=== PATIENT | male | born 1980 | race Caucasian/White ===

== ENCOUNTER 2019-11-30 07:45 | Emergency (ER) | payer BC, SELFPAY ==
[2019-11-30 07:50] VITALS: BP 131/74; PULSE 58; RESP 14; TEMP 36.5; O2SAT 99
--- NOTE | 2019-11-30 07:56 | W.ED.GENAD ---
Discharge Plan Disposition Patient Disposition: HOME Condition: Stable Discharge Details Chief Complaint: FlankPain Clinical Impression: Ureterolithiasis Primary Care Provider: None,None ED Provider: Jess Galvez Home Meds and New Rx's Prescriptions: No Action No Known Home Meds RF: 0 Discharge Instructions Instructions: Kidney Stones (ED) Additional Instructions: Please return immediately to the emergency department if you develop any new or worsening symptoms, if your condition does not improve as expected, or if you become otherwise concerned. It is extremely important that you call soon as possible to make an appointment to be seen in follow-up for this visit by your primary care doctor and a urologist as we discussed. Referrals: Chet Pedraza MD [ [facility] STAFF PHYSICIAN] - Discharge Data Discharge Date/Time-TO BE ENTERED AT DEPARTURE: 11/30/19 10:08 Medical Decision Making Larry Rodriguez 39-year-old man with history of kidney stones who presents emergency department with right-sided flank pain consistent with his prior episodes of kidney stones. On exam patient is well and nontoxic-appearing, he has mild right-sided CVA tenderness, benign abdominal exam. He appears comfortable and in no distress. Testicular/scrotal exam is benign. Concern for ureterolithiasis, UTI, other. Exam/history at this time is not consistent with acute aortic pathology, testicular torsion, orchitis, epididymitis, other acute emergent testicular pathology. Plan for screening labs, IV fluid hydration, CT renal. Will hold pain medication at this time as patient reports that he is currently comfortable. Prior to CT result, patient reports that he felt stone passage during urination. CT shows mild right-sided hydronephrosis and 2 mm stone in bladder, CT also shows bilateral fat-containing inguinal hernias, which may be contributing to patient's intermittent testicular discomfort. Plan for outpatient follow-up with urology. Patient feels well, requesting discharge home. I had a lengthy discussion with Patient regarding return to emergency department precautions, home care, and importance of outpatient follow-up. Pt verbalizes understanding of the plan and is amenable. Patient discharged to home with clear plan for outpatient follow-up. All questions were answered. Disposition decision was made weighing the risks and benefits of hospitalization versus outpatient treatment, the risk for further decompensation, and the patient's wishes. Medical Records Medical records reviewed: Yes I reviewed the patient's medical records. Imaging Data Radiologic Study: Attestation: I personally reviewed and interpreted this imaging study as follows: Radiologist's impression: EXAM: CT RENAL COLIC WO CLINICAL HISTORY: right flank pain. TECHNIQUE: Imaging Protocol: Axial computed tomography images with coronal and sagittal reformatted images were created and reviewed. CONTRAST MATERIAL: Intravenous: Omnipaque 350 Contrast volume:structured data in ml Contrast route:IV - Oral: yes / no COMPARISON: No exams were available for comparison FINDINGS: ABDOMEN: Lung Bases: Normal where visualized. Liver: Normal density. No measurable mass. Gallbladder and biliary tract: No radiodense calculus or dilation. Pancreas: Normal density, no abnormal calcifications or inflammatory process. Spleen: Normal. Kidneys: Normal size, contour and axis. There are 2 adjacent stones at the lower pole of the left kidney which are nonobstructing. They measure approximately 12 millimeters in greatest dimension. There is mild right hydronephrosis. There is a 2 millimeter stone seen in the urinary bladder. No stones are noted in the right kidney or right ureter.. No masses seen. Adrenal glands: No masses seen. Abdominal Aorta: Abdominal portion non-dilated. PELVIS: Bladder: Symmetric distention, no gross wall thickening. 2 millimeter stone in the bladder. Bowel: No obstruction or bowel wall thickening. Normal appendix. Peritoneal cavity: No ascites, collection or mesenteric inflammatory response. Bones: Within normal limits. Small bilateral fatty containing inguinal hernias. IMPRESSION: Mild right hydronephrosis. 2 millimeter stone is noted in the urinary bladder. Lab Data Lab results reviewed: Yes I reviewed the patient's lab results. Labs: Laboratory Tests Range/Units 11/30/19 11/30/19 11/30/19 08:00 08:00 08:50 WBC (4.4-10.8) 10^3/uL 8.26 RBC (4.36-5.78) 10^6/uL 5.21 Hgb (13.5-17.5) g/dL 15.4 Hct (40.0-50.0) % 46.1 MCV (80-95) fL 88.5 MCH (27.0-33.0) pg 29.6 MCHC (32.0-36.0) % 33.4 RDW (11.8-14.1) % 11.9 Plt Count (130-400) 10^3/uL 179 MPV (8.0-11.0) fL 10.4 Immature Gran % 0.4 Neutrophils % 77.3 Lymphocytes % 14.9 Monocytes % 6.5 Eosinophils % 0.7 Basophils % 0.2 Absolute Neutrophils (1.2-6.7) 10^3/uL 6.38 Absolute Lymphocytes (1.2-3.4) 10^3/uL 1.23 Absolute Monocytes (0.1-0.8) 10^3/uL 0.54 Absolute Eosinophils (0.0-0.7) 10^3/uL 0.06 Absolute Basophils (0.0-0.2) 10^3/uL 0.02 Sodium (136-145) mmol/L 140 Potassium (3.5-5.1) mmol/L 3.6 Chloride (98-107) mmol/L 103 Carbon Dioxide (21.0-32.0) mmol/L 28.4 Anion Gap (3-11) mmol/L 8.6 BUN (7-18) mg/dL 17 Creatinine (0.70-1.30) mg/dL 1.08 Estimated GFR/1.73 m2 (mL/min/1.73m2) >= 60.00 Glucose (74-106) mg/dL 113 H Calcium (8.5-10.1) mg/dL 9.1 Total Bilirubin (0.2-1.0) mg/dL 0.4 AST (15-37) U/L 18 ALT (16-63) U/L 27 Alkaline Phosphatase (46-116) U/L 57 Total Protein (6.4-8.2) g/dL 7.7 Albumin (3.4-5.0) g/dL 4.3 Urine Color (Yellow) Yellow Urine Clarity (Clear) Clear Urine pH (5-8) 5.5 Ur Specific [place] (1.005-1.025) 1.010 Urine Protein (Negative) mg/dL Negative Urine Ketones (Negative) mg/dL Negative Urine Blood (Negative) Large H Urine Nitrite (Negative) Negative Urine Bilirubin (Negative) Negative Urine Urobilinogen (Up TO 0.2) EU/dL 0.2 Ur Leukocyte Esterase (Negative) Negative Urine RBC (0-2) HPF 20-50 H Urine WBC (0-5) HPF 0-2 Ur Epithelial Cells (Negative) HPF Negative Urine Crystals (Negative) HPF Negative Urine Bacteria (Negative) HPF Negative Urine Casts (Negative) LPF Negative Urine Mucus (Negative) Trace Ur Culture Indicated? No Urine Glucose (Negative) mg/dL Negative HPI General Mode of arrival: ambulatory. Date/Time Provider Initiated Documentation: 11/30/19 07:55. Limitations to Documentation: no limitations. Information obtained by: patient, RN notes reviewed and old records reviewed. HPI Narrative: Larry Rodriguez 49-year-old man with a history of kidney stones presenting to the emergency department with right-sided flank pain. Patient reports that he has had 3 kidney stones in the past, on the left side. Patient states last episode was approximately 1.5 years ago. Patient reports that at 5 AM this morning he awoke from sleep with right-sided flank pain that was initially mild and then became more severe with radiation into his right lower abdomen and right testicle. Patient reports that his pain was consistent with his prior episodes of kidney stones, although now on the right as opposed to the prior episodes which were on the left. Patient reports that he has been told in the past by his urologist that when he feels the stone pain he should drink large quantities of water. Patient reports that he attempted to do so this morning. But had 2 episodes of vomiting, he reports emesis was water only. Patient reports that while in his car on the way to the emergency department his pain subsided substantially and is currently now mild. Patient reports that he was previously in his usual state of health. No fevers, no diarrhea, no numbness, no weakness, no rash. When questioned about other pain, patient states that he has had mild intermittent pain in his left testicle for the past 3 weeks or so, not currently occurring. Patient reports that pain has been mild and not something he would have sought emergency care for. He denies any new sexual partners and states that he has not had any sexual activity in the past 2 months or so, denies dysuria, denies penile discharge. Has been eating and drinking as usual prior to this morning. Patient reports he has been unable to urinate since waking with pain this morning. Related Data Home Medications Medication Instructions Recorded Confirmed Unknown [No Known Home Meds] 11/30/19 11/30/19 Allergies Allergy/AdvReac Type Severity Reaction Status Date / Time No Known Allergies Allergy Unverified 11/30/19 07:53 General Stated Complaint: FlankPain KELLEN: 3 Review of Systems Narrative: Constitutional: denies fevers Eyes: denies eye pain ENT: denies ear pain, dental pain, sore throat Cardiovascular: denies chest pain Respiratory: denies SOB, cough GI: Reports pain radiating into abdomen, vomiting, denies diarrhea : Reports flank pain, 3 weeks of intermittent testicular pain, denies dysuria, scrotal swelling/rash, penile discharge MSK: denies back pain, neck pain, arthralgias, myalgias Skin: denies rash Neuro: denies headaches, numbness, weakness [facility] Social History Smoking/Tobacco Use Status: Former Tobacco Use Alcohol Intake: current Alcohol Intake frequency: a few times a week Alcohol type: beer Substance use type: does not use Do you feel safe at home: Yes Do you feel safe in your relationship?: Yes Exam Narrative Exam Narrative: Constitutional: well and [id number], pleasant, conversing normally HENT: head atraumatic/normocephalic/normal inspection, mucous membranes moist Eyes: conjunctiva normal, sclera normal, pupils 3mm b/l Neck: no stridor, normal ROM, trachea midline Chest: normal inspection Resp: normal work of breathing, no respiratory distress Cardio: normal rate, normal rhythm GI: abdomen soft, non-tender, non-distended : Normal penis, bilateral testicles nontender to palpation, no scrotal edema or scrotal skin changes Back: normal inspection, no rash, mild right-sided CVA tenderness, no left CVA tenderness Skin: warm, dry, normal color, no rash Neuro: alert, not altered, grossly non-focal, normal tone Ext: no edema Psych: normal mood, normal affect, normal behavior Course Vital Signs Vital signs: Vital Signs Temperature 36.5 C 11/30/19 07:50 Pulse 58 L 11/30/19 07:50 Respiratory Rate 14 11/30/19 07:50 Blood Pressure 131/74 11/30/19 07:50 Pulse Oximetry 99 11/30/19 07:50 Temperature 36.5 C 11/30/19 07:50 Temperature Source Tympanic 11/30/19 07:50 Pulse 58 L 11/30/19 07:50 Respiratory Rate 14 11/30/19 07:50 Respiratory Effort Non-Labored 11/30/19 07:52 Blood Pressure 131/74 11/30/19 07:50 Blood Pressure Position Sitting 11/30/19 07:50 Pulse Oximetry 99 11/30/19 07:50 Oxygen Delivery Method Room Air 11/30/19 07:50 Oxygen Flow Rate 0 11/30/19 07:50 Pain Level 2 11/30/19 07:50 Comment 11/30/19 07:50
[2019-11-30 08:16] LABS: Abs Immature Grans 0.03 10^3/uL (0.0-0.06); Absolute Basophil Count 0.02 10^3/uL (0.0-0.2); Absolute Eosinophil Count 0.06 10^3/uL (0.0-0.7); Absolute Lymphocyte Count 1.23 10^3/uL (1.2-3.4); Absolute Monocyte Count 0.54 10^3/uL (0.1-0.8); Absolute Neutrophil Count 6.38 10^3/uL (1.2-6.7); Basophils % 0.2; Eosinophils % 0.7; HCT 46.1 % (40.0-50.0); HGB 15.4 g/dL (13.5-17.5); Immature Grans % 0.4; Lymphocytes % 14.9; MCH 29.6 pg (27.0-33.0); MCHC 33.4 % (32.0-36.0); MCV 88.5 fL (80-95); MPV 10.4 fL (8.0-11.0); Monocytes % 6.5; Neutrophils % 77.3; Nucleated RBC 0 %; Platelet Count 179 10^3/uL (130-400); RBC 5.21 10^6/uL (4.36-5.78); RDW 11.9 % (11.8-14.1); RDW-SD 38.3 fL; WBC 8.26 10^3/uL (4.4-10.8)
[2019-11-30 08:31] LABS: ALT 27 U/L (16-63); AST 18 U/L (15-37); Albumin 4.3 g/dL (3.4-5.0); Alkaline Phosphatase 57 U/L (46-116); Anion Gap 8.6 mmol/L (3-11); BUN 17 mg/dL (7-18); Bilirubin, Total 0.4 mg/dL (0.2-1.0); CO2 28.4 mmol/L (21.0-32.0); CREATININE 1.08 mg/dL (0.70-1.30); Calcium 9.1 mg/dL (8.5-10.1); Chloride 103 mmol/L (98-107); Glucose 113 mg/dL (74-106); Potassium 3.6 mmol/L (3.5-5.1); Sodium 140 mmol/L (136-145); Total Protein 7.7 g/dL (6.4-8.2)
--- NOTE | 2019-11-30 08:33 | DI.CT_ITS ---
EXAM: CT RENAL COLIC WO CLINICAL HISTORY: right flank pain. TECHNIQUE: Imaging Protocol: Axial computed tomography images with coronal and sagittal reformatted images were created and reviewed. CONTRAST MATERIAL: Intravenous: Omnipaque 350 Contrast volume:structured data in ml Contrast route:I V - Oral: yes / no COMPARISON: No exams were available for comparison FINDINGS: ABDOMEN: Lung Bases: Normal where visualized. Liver: Normal density. No measurable mass. Gallbladder and biliary tract: No radiodense calculus or dilation. Pancreas: Normal density, no abnormal calcifications or inflammatory process. Spleen: Normal. Kidneys: Normal size, contour and axis. There are 2 adjacent stones at the lower pole of the left kid demetris which are nonobstructing. They measure approximately 12 millimeters in greatest dimension. Ther e is mild right hydronephrosis. There is a 2 millimeter stone seen in the urinary bladder. No stone s are noted in the right kidney or right ureter.. No masses seen. Adrenal glands: No masses seen. Abdominal Aorta: Abdominal portion non-dilated. PELVIS: Bladder: Symmetric distention, no gross wall thickening. 2 millimeter stone in the bladder. Bowel: No obstruction or bowel wall thickening. Normal appendix. Peritoneal cavity: No ascites, collection or mesenteric inflammatory response. Bones: Within normal limits. Small bilateral fatty containing inguinal hernias. IMPRESSION: Mild right hydronephrosis. 2 millimeter stone is noted in the urinary bladder. RADIATION DOSE DELIVERED: 711.56mGy.cm Total DLP DATA REPOSITORY: All CT scans at this facility are submitted to the National Radiology Data Registry (NRDR) Dose Index Registry (DIR) with the [employer] [place] [employer] (ACR). RADIATION OPTIMIZATION: All CT scans at this facility use at least one of these dose optimization te chniques: automated exposure control; mA and/or kV adjustment per patient size (includes targeted exa ms where dose is matched to clinical indication); or iterative reconstruction.
--- NOTE | 2019-11-30 08:56 | NUR.NOTE ---
Nursing Note: PT reports passing kidney stone while providing a urine sample. Stone could be seen in toilet. MD Galvez made aware.
[2019-11-30 09:10] LABS: Bilirubin Negative (Negative); Blood Large (Negative); Clarity Clear (Clear); Glucose Negative (Negative); Ketones Negative (Negative); Leukocyte Esterase Negative (Negative); Nitrite Negative (Negative); Urobilinogen 0.2 EU/dL (Up TO 0.2); pH 5.5 (5-8)
[2019-11-30 09:32] LABS: Bacteria Negative HPF (Negative); C & S Indicated? No; Casts Negative LPF (Negative); Crystals Negative HPF (Negative); Epithelial Cells Negative HPF (Negative); Mucus Trace (Negative); RBC 20-50 HPF (0-2); WBC 0-2 HPF (0-5)
[2019-11-30 09:40] VITALS: BP 111/68; PULSE 68; RESP 16; TEMP 36.5; O2SAT 99
--- NOTE | 2019-11-30 10:15 | NUR.NOTE ---
Nursing Note: Referral faxed to [facility] Urology for follow up. Sugey Sylvester Referral to establish care for PCP given to Care Management. Sugey Sylvester
--- NOTE | 2019-11-30 15:33 | PDOC.ERCMPRO ---
- If Service Date Differs Date of service: 11/30/19 Time of Service: 15:33 Care Management Progress Note coordinates a referral to Dr. Randall, on-call doc, of [facility], to assist Larry in establishing care with PCP. A referral has also been faxed to [facility] Urology by the ED.
== END 2019-11-30 10:08 | disposition home or self-care (01) ==
PROVIDERS: Emergency Provider Student in an Organized Health Care Education/Training Program
DX: N13.2 Hydronephrosis with renal and ureteral calculous obstruction (principal); R11.2 Nausea with vomiting, unspecified; Z87.442 Personal history of urinary calculi
CPT/HCPCS: 36415; 80053; 99284; 74176; 81003; 81015; 85025

== ENCOUNTER 2020-09-08 02:34 | Outpatient (CLI) | payer BC, SELFPAY ==
[2020-09-08 13:59] LABS: BUN 12 mg/dL (7-18); CREATININE 0.9 mg/dL (0.70-1.30)
== END 2020-09-08 02:35 | disposition home or self-care (01) ==
LOC: LBO 02:34
PROVIDERS: Visit Provider Nurse Practitioner Gerontology
DX: R10.31 Right lower quadrant pain (principal); N50.82 Scrotal pain
CPT/HCPCS: 84520; 82565

== ENCOUNTER 2020-12-19 04:44 | Inpatient (IN) | payer BC, SELFPAY ==
[2020-12-19] VITALS (7 sets, daily range): BP systolic 120–131; BP diastolic 73–86; PULSE 66–81; RESP 14–20; TEMP 36.2–36.7; O2SAT 97–100
--- NOTE | 2020-12-19 04:45 | DI.CT_ITS ---
Exam(s) CT RENAL COLIC WO EXAM: CT RENAL COLIC WO CLINICAL HISTORY: left flank pain. TECHNIQUE: Imaging Protocol: Axial computed tomography images with coronal and sagittal reformatted images were created and reviewed. CONTRAST MATERIAL: Noncontrast COMPARISON: CT CT RENAL COLIC WO from 11/30/2019 FINDINGS: ABDOMEN: Lung Bases: Normal where visualized. Liver: Normal attenuation. No measurable mass. Gallbladder and biliary tract: No radiodense calculus or dilation. Pancreas: Normal density, no calcifications or inflammatory process. Spleen: Normal. Kidneys: Normal size, contour and axis. 7 millimeter stone lower pole left kidney. Mild to moderate left hydronephrosis secondary to a 6 by 8 millimeter stone upper left ureter. No masses seen. Rig ht kidney normal. Adrenal glands: No masses seen. Abdominal Aorta: Abdominal portion non-dilated. PELVIS: Bladder: Symmetric distention, no gross wall thickening. Bowel: No obstruction or bowel wall thickening. Appendix normal. Peritoneal cavity: No ascites, collection or mesenteric inflammatory response. Small fatty containin g umbilical hernia. Bones: Mild degenerative changes.. IMPRESSION: Mild to moderate left hydronephrosis secondary to an 8 millimeter stone in the proximal left ureter. Additional 7 millimeter stone lower pole left kidney. RADIATION DOSE DELIVERED: 894.1mGy.cm Total DLP DATA REPOSITORY: All CT scans at this facility are submitted to the National Radiology Data Registry (NRDR) Dose Index Registry (DIR) with the [employer] (ACR). RADIATION OPTIMIZATION: All CT scans at this facility use at least one of these dose optimization te chniques: automated exposure control; mA and/or kV adjustment per patient size (includes targeted exa ms where dose is matched to clinical indication); or iterative reconstruction.
--- NOTE | 2020-12-19 04:51 | W.ED.GENAD ---
Discharge Plan Disposition Patient Disposition: [facility] INPATIENT Condition: Stable Discharge Details Chief Complaint: FlankPain Clinical Impression: Kidney stones Primary Care Provider: Unknown,Unknown ED Provider: Sidney Ochoa Home Meds and New Rx's Prescriptions: No Action No Known Home Meds RF: 0 Medical Decision Making Patient is a this is a 40-year-old male with a past medical history of kidney stones who presents today with sudden onset left flank pain. Patient states that he woke up out of sleep with severe left flank pain, it radiates towards his groin, he denies any actual scrotal or penile pain, however he does feel radiation from his left flank. He admits to nausea but no vomiting. He denies diarrhea. Patient states that this feels similar to previous kidney stones. No other complaints at this time. No other modifying factors. He has not had his stone analyzed in the past. Exam demonstrates a nonsurgical abdomen. He does have referred left flank pain. Suspect kidney stone. Will give Tylenol, Toradol, Flomax, morphine, CT renal study, monitor closely and reassess. 7:[address] scan results have returned per virtual radiology and demonstrate evidence of a 6 mm obstructing stone in the proximal left ureter causing moderate left hydronephrosis. Laboratory work-up is unremarkable, no white count bandemia or left shift. Electrolytes normal, renal function normal. Urinalysis shows large blood, high RBC, but no WBCs. No evidence of UTI or infection. Patient was given a liter of normal saline, and has so far required multiple redosings of morphine, Dilaudid, and Toradol. With the size of the stone, I do not suspect that the patient will be managed well outpatient. I do feel that he will need admission at this time for pain management. The stone still does not pass over the next 24 hours the patient may require lithotripsy or stone removal via surgical intervention. We will contact the hospitalist for admission. 7:39 AM Contacted the hospitalist , he agrees with the assessment and plan. I have extensively reviewed the treatment plan with the patient. I have addressed all patient concerns at this time. I have also discussed the plan with the admitting physician and they agree with the current assessment and plan and have agreed to assume responsibility for the patient. All parties demonstrate verbal understanding and agreement with our assessment and plan at this time. The documentation in this chart was dictated using Dragon dictation software. Please excuse any dictation errors. IMPRESSION: 1. 6 mm obstructing stone proximal left ureter causing moderate left hydronephrosis. 2. Bilateral nephrolithiasis Thank you for allowing us to participate in the care of your patient. Dictated and Authenticated by: Eulalia Gomez MD 12/19/2020 5:38 AM Eastern Time ([place] & [place]) HPI General Date/Time Provider Initiated Documentation: 12/19/20 04:44. HPI Narrative: Patient is a this is a 40-year-old male with a past medical history of kidney stones who presents today with sudden onset left flank pain. Patient states that he woke up out of sleep with severe left flank pain, it radiates towards his groin, he denies any actual scrotal or penile pain, however he does feel radiation from his left flank. He admits to nausea but no vomiting. He denies diarrhea. Patient states that this feels similar to previous kidney stones. No other complaints at this time. No other modifying factors. He has not had his stone analyzed in the past. Related Data Home Medications Medication Instructions Recorded Confirmed Unknown [No Known Home Meds] 11/30/19 12/19/20 Allergies Allergy/AdvReac Type Severity Reaction Status Date / Time No Known Allergies Allergy Unverified 12/19/20 04:50 General Stated Complaint: FlankPain KELLEN: 2 Review of Systems All systems reviewed & are unremarkable except as noted in HPI and below [facility] Social History Smoking/Tobacco Use Status: Former Tobacco Use Smoking risk assessment performed?: Yes Alcohol Intake: current Alcohol Intake frequency: a few times a week Alcohol type: beer Drug use: Never Substance use type: does not use Current gender identity: other Do you feel safe at home: Yes Do you feel safe in your relationship?: Yes Exam Narrative Exam Narrative: 1.Const: Well-nourished, Well-developed, appearing stated age 2.Eyes: PERRL, no conjunctival injection, and symmetrical lids. 3.ENT: Atraumatic external nose and ears. Moist MM. Neck: Symmetric, trachea midline, No thyromegaly. 4.CVS: +S1/S2, No murmurs or gallops. Peripheral pulses 2+ and equal in all extremities. Brisk capillary refill in all extremities. 5.RESP: Unlabored respiratory effort. Clear to auscultation bilaterally. No wheezes rales or rhonchi 6.GI: Soft, Nontender/Nondistended, No hepatosplenomegaly. No guarding or rebound. No genital tenderness. Mild reproducible left flank tenderness on percussion no pain or McBurney's point, negative Grider sign 7.MSK: Normocephalic/Atraumatic, Extremities w/o deformity or ttp No cyanosis or clubbing, Normal movement of all extremities 8.Skin: Warm, Dry. No rashes or lesions. 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 Sensation grossly intact, no focal neurologic deficits. 10.Psych: (AAO) x3. Appropriate mood and affect Course Vital Signs Vital signs: Vital Signs Temperature 36.2 C L 12/19/20 04:47 Temperature 36.2 C L 12/19/20 04:47 Temperature Source Skin 12/19/20 04:47 Blood Pressure Position Sitting 12/19/20 04:47 Oxygen Delivery Method Room Air 12/19/20 04:47 Oxygen Flow Rate 0 12/19/20 04:47 Pain Level 7 12/19/20 04:47
[2020-12-19] MEDS: Normal Saline 1,000 ML 1000 ML IV (04:59)
[2020-12-19] MEDS: Tamsulosin 0.4 MG CAPCR PO (05:01)
[2020-12-19] MEDS: Ketorolac 15 MG/ML VIAL IVP (05:01)
[2020-12-19 05:02] LABS: Abs Immature Grans 0.01 10^3/uL (0.0-0.06); Absolute Basophil Count 0.05 10^3/uL (0.0-0.2); Absolute Eosinophil Count 0.22 10^3/uL (0.0-0.7); Absolute Lymphocyte Count 4.33 10^3/uL (1.2-3.4); Absolute Monocyte Count 0.74 10^3/uL (0.1-0.8); Absolute Neutrophil Count 2.84 10^3/uL (1.2-6.7); Basophils % 0.6; Eosinophils % 2.7; HCT 45.7 % (40.0-50.0); HGB 15.1 g/dL (13.5-17.5); Immature Grans % 0.1; Lymphocytes % 52.9; MCH 29.3 pg (27.0-33.0); MCV 88.7 fL (80-95); MPV 10.1 fL (8.0-11.0); Neutrophils % 34.7; Nucleated RBC 0 %; Platelet Count 221 10^3/uL (130-400); RBC 5.15 10^6/uL (4.36-5.78); RDW 11.9 % (11.8-14.1); RDW-SD 39.2 fL; WBC 8.19 10^3/uL (4.4-10.8)
[2020-12-19] MEDS: MORPHine 4 MG/ML SYR IVP (05:03)
[2020-12-19 05:16] LABS: ALT 28 U/L (16-63); AST 16 U/L (15-37); Albumin 4.3 g/dL (3.4-5.0); Alkaline Phosphatase 74 U/L (46-116); Anion Gap 10.6 mmol/L (3-11); BUN 17 mg/dL (7-18); Bilirubin, Total 0.4 mg/dL (0.2-1.0); CO2 26.4 mmol/L (21.0-32.0); CREATININE 1.3 mg/dL (0.70-1.30); Calcium 9.1 mg/dL (8.5-10.1); Chloride 105 mmol/L (98-107); Glucose 142 mg/dL (74-106); Potassium 3.8 mmol/L (3.5-5.1); Sodium 142 mmol/L (136-145); Total Protein 7.7 g/dL (6.4-8.2)
[2020-12-19] MEDS: ACETAMINOPHEN 1,000 MG/100 ML BTL 400 MG IVPB (05:19)
--- NOTE | 2020-12-19 05:39 | DI.VRAD_ITS ---
PROCEDURE INFORMATION: Exam: CT Abdomen And Pelvis Without Contrast Exam date and time: 12/19/2020 4:51 AM Age: 40 years old Clinical indication: Abdominal pain; Patient HX: Left flank pain, HX of stones with prior lithotripsy TECHNIQUE: Imaging protocol: Computed tomography of the abdomen and pelvis without contrast. Radiation optimization: All CT scans at this facility use at least one of these dose optimization techniques: automated exposure control; mA and/or kV adjustment per patient size (includes targeted exams where dose is matched to clinical indication); or iterative reconstruction. COMPARISON: CT RENAL COLIC WO 11/30/2019 8:32 AM FINDINGS: Lungs: Unremarkable. Lung bases are clear. Liver: Unremarkable. No mass. Gallbladder and bile ducts: Unremarkable. No calcified stones. No ductal dilation. Pancreas: Unremarkable. No ductal dilation. Spleen: Unremarkable. No splenomegaly. Adrenal glands: Normal. No mass. Kidneys and ureters: 6 mm obstructing stone is present in the left proximal ureter causing moderate left-sided hydronephrosis. Bilateral nephrolithiasis. Stomach and bowel: Mild scattered diverticuli are present within the sigmoid colon. No evidence of diverticulitis. Appendix: No evidence of appendicitis. Intraperitoneal space: Unremarkable. No free air. No significant fluid collection. Vasculature: Unremarkable. No abdominal aortic aneurysm. Lymph nodes: Unremarkable. No enlarged lymph nodes. Urinary bladder: Unremarkable as visualized. Reproductive: Unremarkable as visualized. Bones/joints: Unremarkable. No acute fracture. Soft tissues: Unremarkable. IMPRESSION: 1. 6 mm obstructing stone proximal left ureter causing moderate left hydronephrosis. 2. Bilateral nephrolithiasis Dictated and Authenticated by: Eulalia Gomez MD. Ordering:BOO Little MD
[2020-12-19] MEDS: HYDROmorphone 2 MG/ML VIAL 1 MG IVP ×2 (05:45→06:44)
[2020-12-19 06:51] LABS: Bilirubin Negative (Negative); Blood Large (Negative); Clarity Clear (Clear); Glucose Negative (Negative); Ketones Negative (Negative); Leukocyte Esterase Negative (Negative); Nitrite Negative (Negative); Urobilinogen 0.2 EU/dL (Up TO 0.2); pH 5.5 (5-8)
[2020-12-19 07:01] LABS: Bacteria Moderate HPF (Negative); Crystals Negative HPF (Negative); Epithelial Cells Rare HPF (Negative); Mucus Moderate (Negative); RBC >50 HPF (0-2); WBC 0-2 HPF (0-5)
[2020-12-19 07:02] LABS: C & S Indicated? Yes; Casts 0-2 Hyaline LPF (Negative)
--- NOTE | 2020-12-19 08:20 | W.PM.HP.N ---
Date of service: 12/19/20 Time of Service: 08:21 Assessment and Plan Assessment and plan (1) Kidney stones: Status: Chronic Assessment and plan: CT scan shows obstructing 6 mm stone proximal left ureter causing moderate left hydronephrosis with bilateral nephrolithiasis. will be referred to observation for symptom management -started on flomax -IV pain management, titrate as able -IV fluids and antiemetics as needed -urology consultation -strain all urine. discussed with Dr Kincaid History of Present Illness History of Present Illness Chief Complaint: left flank pain Narrative: patient presents to the ED after being awoken from sleep with severe left flank pain radiating into his groin. he has a history of kidney stones and this presents similar. He reported nausea, no vomiting. and was previously in his usual state of health. His work up in the ED confirms an obstructing 6 mm stone on the left. He will be admitted for pain management and if does not pass, will be referred to urology. He received several doses of IV pain medication in the ED to control his pain. Review of Systems All systems reviewed & are unremarkable except as noted in HPI and below Constitutional Constitutional: Denies fever(s) Gastrointestinal Gastrointestinal: Denies abdominal pain, Reports nausea and Denies vomiting Genitourinary Genitourinary: Denies hematuria, Denies difficulty urinating, Reports flank pain and Denies urinary urgency Musculoskeletal Musculoskeletal: Reports back pain (left flank with radiation to groin) Hematologic/Lymphatic Hematologic/Lymphatic: Denies easy bleeding and Denies easy bruising PFSH Social History Smoking/Tobacco Use Status: Former Tobacco Use Smoking risk assessment performed?: Yes Alcohol Intake: current Alcohol Intake frequency: a few times a week Alcohol type: beer Drug use: Never Substance use type: does not use Current gender identity: other Do you feel safe at home: Yes Do you feel safe in your relationship?: Yes Meds Allergies and Home Medications Allergies Allergy/AdvReac Type Severity Reaction Status Date / Time No Known Allergies Allergy Unverified 12/19/20 04:50 Home Medications Medication Instructions Recorded Confirmed Type acetaminophen 650 mg PO Q4H PRN #1 tab 12/19/20 Rx ibuprofen 800 mg PO TID PRN #30 tab 12/19/20 Rx ondansetron 4 mg PO Q4H PRN #12 tab 12/19/20 Rx oxycodone 5 mg PO Q6H PRN #10 cap 12/19/20 Rx tamsulosin 0.4 mg PO DAILY #7 cap 12/19/20 Rx Exam Const General: cooperative, healthy appearing, comfortable, no acute distress and well groomed Nutritional Appearance: average body habitus Orientation: alert, awake and oriented x3 HENMT Head: normal to inspection, normocephalic and atraumatic Resp Effort & Inspection: normal respiratory effort Cardio Jugular venous pressure: other (pink warm well perfused) GI Inspection: normal to inspection Palpation: soft Skin General skin exam: no rashes or lesions noted Neuro General: patient alert, patient awake and patient oriented x3 Extrem General: normal to inspection and full ROM Psych Mental Status: mental status grossly normal Speech and Movement: speech and movement normal Mood: congruent mood Affect: normal affect Results Labs Result diagrams: 12/19/20 04:53 12/19/20 04:53 Labs: Laboratory Results - last 24 hr 12/19/20 12/19/20 12/19/20 04:53 04:53 06:43 WBC 8.19 RBC 5.15 Hgb 15.1 Hct 45.7 MCV 88.7 MCH 29.3 MCHC 33.0 RDW 11.9 Plt Count 221 MPV 10.1 Immature Gran % 0.1 Neutrophils % 34.7 Lymphocytes % 52.9 Monocytes % 9.0 Eosinophils % 2.7 Basophils % 0.6 Nucleated RBC % 0 Absolute Neutrophils 2.84 Absolute Lymphocytes 4.33 H Absolute Monocytes 0.74 Absolute Eosinophils 0.22 Absolute Basophils 0.05 Sodium 142 Potassium 3.8 Chloride 105 Carbon Dioxide 26.4 Anion Gap 10.6 BUN 17 Creatinine 1.3 Estimated GFR/1.73 m2 >= 60.00 Glucose 142 H Calcium 9.1 Total Bilirubin 0.4 AST 16 ALT 28 Alkaline Phosphatase 74 Total Protein 7.7 Albumin 4.3 Urine Color Yellow Urine Clarity Clear Urine pH 5.5 Ur Specific [place] 1.020 Urine Protein Negative Urine Ketones Negative Urine Blood Large H Urine Nitrite Negative Urine Bilirubin Negative Urine Urobilinogen 0.2 Ur Leukocyte Esterase Negative Urine RBC >50 H Urine WBC 0-2 Ur Epithelial Cells Rare Urine Crystals Negative Urine Bacteria Moderate Urine Casts 0-2 Hyaline Urine Mucus Moderate Ur Culture Indicated? Yes Urine Glucose Negative Last Vital Signs Temp 36.5 C 12/19/20 07:44 Pulse 70 12/19/20 07:44 Resp 14 12/19/20 07:44 BP 131/79 12/19/20 07:44 Pulse Ox 99 12/19/20 07:44
[2020-12-19] MEDS: Ondansetron 4 MG/2 ML VIAL (08:23)
[2020-12-19 08:42] LABS: Source Nasal/Nares
[2020-12-19 10:12] LABS: COVID-19 PCR Negative (Negative)
[2020-12-19] MEDS: Ketorolac 30 MG/ML VIAL IVP ×2 (10:35→16:41)
[2020-12-19] MEDS: Normal Saline Flush 10 ML SYR (10:46)
[2020-12-19] MEDS: Normal Saline 1,000 ML 100 ML IV ×2 (12:04→20:48)
--- NOTE | 2020-12-19 13:35 | DSE_ITS ---
Date of service: 12/19/20 Time of Service: 13:35 DS: Diagnosis Discharge Diagnosis (1) Kidney stones: Status: Chronic Discharge Plan Disposition Patient Disposition: HOME Condition: Stable Discharge Details Reason For Visit: ureterolithiasis,obstructive urophathy,renal colic Admit Date/Time: 12/19/20 07:25 Admit Provider: Rob Kincaid Attending Provider: Rob Kincaid Primary Care Provider: Unknown,Unknown Hospital Course Hospital Course: This is a 40 year old patient who presented to the ED after being awoken from sleep with severe left flank pain radiating into his groin. He has a history of kidney stones and this presents similar. He reported nausea, no vomiting. and was previously in his usual state of health. His work up in the ED confirms an obstructing 6 mm stone on the left. He will be admitted for pain management and if does not pass, will be referred to urology. He received several doses of IV pain medication in the ED to control his pain. He was referred to observation and since arriving to the floor his pain has been managed and he has not required any narcotic pain medication. He is requesting discharge now that pain is managed. He will be referred to urology for follow up. he will be given prescriptions for flomax, oxycodone, zofran to use for symptom management at home. discharge discussed with DR Pedraza. Home Meds and New Rx's Prescriptions: New tamsulosin 0.4 mg Capsule 0.4 mg PO DAILY Qty: 7 RF: 0 ondansetron 4 mg tablet,disintegrating 4 mg PO Q4H PRNQty: 12 RF: 0 ibuprofen 800 mg tablet 800 mg PO TID PRN (Reason: pain) Qty: 30 RF: 0 oxycodone 5 mg capsule 5 mg PO Q6H PRNQty: 10 RF: 0 acetaminophen 325 mg tablet 650 mg PO Q4H PRNQty: 1 RF: 0 Discharge Instructions Instructions: Kidney Stones (DC) Additional Instructions: drink at least 6-8 glasses of water daily to stay well hydrated. Referrals: Chet Pedraza MD [ [facility] STAFF PHYSICIAN] - Activity:: Activity as Tolerated Equipment/Supplies:: No Equipment Needed Diet:: As Tolerated Discharge Orders Discharge Orders: Discharge Order (Routine); Ordered 12/19/20 Ordered By: Maxine Aguilar DS: Summary Time Spent with Patient providing and/or coordinating discharge services: Less than 30 minutes Status at Discharge Functional status at discharge: independent ambulation Overall status at discharge: patient is not back to baseline Mental Status: mental status grossly normal Speech and Movement: speech and movement normal Mood: congruent mood Affect: normal affect Exam Const General: cooperative, healthy appearing, comfortable, no acute distress and well groomed Nutritional Appearance: average body habitus Orientation: alert, awake and oriented x3 HENMT Head: normal to inspection, normocephalic and atraumatic Resp Effort & Inspection: normal respiratory effort Cardio Jugular venous pressure: other (pink warm well perfused) GI Inspection: normal to inspection Palpation: soft Skin General skin exam: no rashes or lesions noted Neuro General: patient alert, patient awake and patient oriented x3 Extrem General: normal to inspection and full ROM Psych Mental Status: mental status grossly normal Speech and Movement: speech and movement normal Mood: congruent mood Affect: normal affect DS: Data Vitals/I&O Vitals and I&O: Vital Signs Temperature 36.2 C L 12/19/20 08:39 Temperature Source Temporal Artery Scan 12/19/20 08:39 Pulse 73 12/19/20 08:39 Pulse Rhythm Regular 12/19/20 09:02 Respiratory Rate 18 12/19/20 08:39 Respiratory Effort Non-Labored 12/19/20 09:02 Respiratory Depth Normal 12/19/20 09:02 Respiratory Pattern Normal 12/19/20 09:02 Blood Pressure 125/74 12/19/20 08:39 Blood Pressure Position Sitting 12/19/20 04:47 Pulse Oximetry 99 12/19/20 08:39 Oxygen Delivery Method Room Air 12/19/20 08:39 Oxygen Flow Rate 0 12/19/20 08:39 Pain Level 3 12/19/20 10:35 Comment 12/19/20 06:35 Intake & Output 12/18/20 12/19/20 12/19/20 23:59 11:59 23:59 Intake Total 1100 / 1100 Balance 1100 / 1100 Weight 83.915 kg Intake: IV 1100 / 1100 Other: # Voids 200 Data Completed and Pending Labs on day of discharge: Labs from last 24 hours 12/19/20 12/19/20 12/19/20 08:42 06:43 04:53 WBC 8.19 RBC 5.15 Hgb 15.1 Hct 45.7 MCV 88.7 MCH 29.3 MCHC 33.0 RDW 11.9 Plt Count 221 MPV 10.1 Immature Gran % 0.1 Neutrophils % 34.7 Lymphocytes % 52.9 Monocytes % 9.0 Eosinophils % 2.7 Basophils % 0.6 Nucleated RBC % 0 Absolute Neutrophils 2.84 Absolute Lymphocytes 4.33 H Absolute Monocytes 0.74 Absolute Eosinophils 0.22 Absolute Basophils 0.05 Sodium Potassium Chloride Carbon Dioxide Anion Gap BUN Creatinine Estimated GFR/1.73 m2 Glucose Calcium Total Bilirubin AST ALT Alkaline Phosphatase Total Protein Albumin Urine Color Yellow Urine Clarity Clear Urine pH 5.5 Ur Specific [place] 1.020 Urine Protein Negative Urine Ketones Negative Urine Blood Large H Urine Nitrite Negative Urine Bilirubin Negative Urine Urobilinogen 0.2 Ur Leukocyte Esterase Negative Urine RBC >50 H Urine WBC 0-2 Ur Epithelial Cells Rare Urine Crystals Negative Urine Bacteria Moderate Urine Casts 0-2 Hyaline Urine Mucus Moderate Ur Culture Indicated? Yes Urine Glucose Negative COVID-19 Source Nasal/Nares SARS-CoV-2 (PCR) Negative 12/19/20 04:53 WBC RBC Hgb Hct MCV MCH MCHC RDW Plt Count MPV Immature Gran % Neutrophils % Lymphocytes % Monocytes % Eosinophils % Basophils % Nucleated RBC % Absolute Neutrophils Absolute Lymphocytes Absolute Monocytes Absolute Eosinophils Absolute Basophils Sodium 142 Potassium 3.8 Chloride 105 Carbon Dioxide 26.4 Anion Gap 10.6 BUN 17 Creatinine 1.3 Estimated GFR/1.73 m2 >= 60.00 Glucose 142 H Calcium 9.1 Total Bilirubin 0.4 AST 16 ALT 28 Alkaline Phosphatase 74 Total Protein 7.7 Albumin 4.3 Urine Color Urine Clarity Urine pH Ur Specific [place] Urine Protein Urine Ketones Urine Blood Urine Nitrite Urine Bilirubin Urine Urobilinogen Ur Leukocyte Esterase Urine RBC Urine WBC Ur Epithelial Cells Urine Crystals Urine Bacteria Urine Casts Urine Mucus Ur Culture Indicated? Urine Glucose COVID-19 Source SARS-CoV-2 (PCR) 12/19/20 06:43 Urine - Reflex from Urine Culture - Pending Preliminary micro results at discharge 12/19/20 06:43 Urine Culture - Pending Urine - Reflex from [facility] Social History Smoking/Tobacco Use Status: Former Tobacco Use Smoking risk assessment performed?: Yes Alcohol Intake: current Alcohol Intake frequency: a few times a week Alcohol type: beer Drug use: Never Substance use type: does not use Current gender identity: other Do you feel safe at home: Yes Do you feel safe in your relationship?: Yes
[2020-12-20 00:01] VITALS: BP 102/57; PULSE 85; RESP 18; TEMP 36.5; O2SAT 97
[2020-12-20] MEDS: Normal Saline 1,000 ML 100 ML IV (06:24)
[2020-12-20 06:52] LABS: Abs Immature Grans 0.03 10^3/uL (0.0-0.06); Absolute Basophil Count 0.02 10^3/uL (0.0-0.2); Absolute Eosinophil Count 0.03 10^3/uL (0.0-0.7); Absolute Lymphocyte Count 1.53 10^3/uL (1.2-3.4); Absolute Monocyte Count 0.92 10^3/uL (0.1-0.8); Absolute Neutrophil Count 6.29 10^3/uL (1.2-6.7); Basophils % 0.2; Eosinophils % 0.3; HCT 38.9 % (40.0-50.0); Immature Grans % 0.3; Lymphocytes % 17.3; MCH 29.7 pg (27.0-33.0); MCHC 33.4 % (32.0-36.0); MCV 88.8 fL (80-95); MPV 10.8 fL (8.0-11.0); Monocytes % 10.4; Neutrophils % 71.5; Nucleated RBC 0 %; Platelet Count 160 10^3/uL (130-400); RBC 4.38 10^6/uL (4.36-5.78); RDW 11.9 % (11.8-14.1); RDW-SD 38.3 fL; WBC 8.82 10^3/uL (4.4-10.8)
[2020-12-20 07:03] LABS: BUN 14 mg/dL (7-18); CREATININE 1.5 mg/dL (0.70-1.30); Calcium 8.1 mg/dL (8.5-10.1); Chloride 106 mmol/L (98-107); Estimated GFR 51.83 (mL/min/1.73m2); Glucose 101 mg/dL (74-106); Potassium 3.9 mmol/L (3.5-5.1); Sodium 141 mmol/L (136-145)
[2020-12-20] MEDS: Tamsulosin 0.4 MG CAPCR PO (08:52)
[2020-12-20 08:59] VITALS: BP 136/72; PULSE 65; RESP 18; TEMP 36.2; O2SAT 99
--- NOTE | 2020-12-20 13:49 | UCONE_ITS ---
Assessment and Plan Assessment and plan (1) Ureteral stone: Status: Acute Assessment and plan: Given the size and location of his stone, it has close to 50% chance of passing with conservative management. We decided to give the stone a chance to pass with alpha blockers and analgesics. If the stone will not pass, I have suggested ureteroscopy and holmium laser lithotripsy. I think it is reasonable for this gentleman to be discharged but I have asked him to give the office a call later this week with a progress report. If he is not doing well, we can make arrangements for a surgical intervention sooner than later. History of Present Illness History of Present Illness Chief Complaint: Left ureteral stone Narrative: This is a 40-year-old gentleman who has a past history significant for kidney stones. He was treated with ESWL previously. I do not have access to the surgery report, but it sounds as if this treatment was done on the left kidney and he passed stone fragments following the procedure. He has never had a stone analysis or metabolic work-up. Our first encounter with this gentleman occurred in 2019 when he presented to the emergency room with right-sided renal colic. He passed a ureteral stone at that time. He was identified as having nonobstructing left kidney stones. He has had several office visits since then. On one occasion, he was complaining of right sided pain but his stones were present on the left. On each occasion, his 2 stones remained in the left lower pole. He presented to the emergency room yesterday with left renal colic. On imaging studies, one of his lower pole stones had migrated to the left ureter. He was not having fevers or chills. He had nausea and vomiting. He was admitted for pain control. His pain has been well controlled, but he has been concerned that he has not passed a stone as of yet. He does describe some discomfort when he voids as well as some mild back discomfort. He is able to take oral medications. Review of Systems Narrative: No fevers or chills No vision change or dysphasia No diabetes or thyroid dysfunction No shortness of breath, cough or hemoptysis No chest pain or palpitations No hepatitis, ulcers, jaundice, diarrhea or constipation No seizures, strokes or peripheral neuropathy No bleeding disorders or anemia No gout [facility] Medical History (Updated 12/20/20 @ 13:51 by Chet Pedraza MD) Ureteral stone Social History Smoking/Tobacco Use Status: Former Tobacco Use Smoking risk assessment performed?: Yes Alcohol Intake: current Alcohol Intake frequency: a few times a week Alcohol type: beer Drug use: Never Substance use type: does not use Current gender identity: other Do you feel safe at home: Yes Do you feel safe in your relationship?: Yes Exam Narrative Exam Narrative: He looks comfortable. His vital signs are documented elsewhere He is awake and alert I reviewed his CT scans from this admission and from previous ER visits. Previously, he had two stones in the lower pole of the left kidney. On yesterday's CT scan, one of the stones remains in the lower pole calyx and the second had migrated to the ureter. Results Last Vital Signs Temp 36.2 C L 12/20/20 08:59 Pulse 65 12/20/20 08:59 Resp 18 12/20/20 08:59 BP 136/72 12/20/20 08:59 Pulse Ox 99 12/20/20 08:59 Labs Result diagrams: 12/20/20 06:14 12/20/20 06:14 Labs: Laboratory Results - last 24 hr 12/20/20 12/20/20 06:14 06:14 WBC 8.82 RBC 4.38 Hgb 13.0 L D Hct 38.9 L MCV 88.8 MCH 29.7 MCHC 33.4 RDW 11.9 Plt Count 160 MPV 10.8 Immature Gran % 0.3 Neutrophils % 71.5 Lymphocytes % 17.3 Monocytes % 10.4 Eosinophils % 0.3 Basophils % 0.2 Nucleated RBC % 0 Absolute Neutrophils 6.29 Absolute Lymphocytes 1.53 Absolute Monocytes 0.92 H Absolute Eosinophils 0.03 Absolute Basophils 0.02 Sodium 141 Potassium 3.9 Chloride 106 Carbon Dioxide 28.0 Anion Gap 7.0 BUN 14 Creatinine 1.5 H Estimated GFR/1.73 m2 51.83 Glucose 101 Calcium 8.1 L
[2020-12-20 16:10] VITALS: BP 116/70; PULSE 77; RESP 18; TEMP 37; O2SAT 98
== END 2020-12-20 16:10 | disposition home or self-care (01) | DRG 694 ==
LOC: ER 07:40 → MS 08:31
PROVIDERS: Nurse Practitioner Acute Care; Admitting Provider Internal Medicine; Emergency Provider Student in an Organized Health Care Education/Training Program; Visit Provider Internal Medicine
DX: N13.2 Hydronephrosis with renal and ureteral calculous obstruction (principal); Z87.442 Personal history of urinary calculi; Z87.891 Personal history of nicotine dependence; Z20.822 Contact with and (suspected) exposure to COVID-19
CPT/HCPCS: 36415; 80048; 80053; 87635; 96361; 96365; 96375; 96376; 99285; 74176; 81003; 81015; 85025; 87086; 99222; 99238; J0131; J1885; J2270; J2405

== ENCOUNTER 2020-12-22 19:22 | Outpatient (REF) | payer BC, SELFPAY ==
[2020-12-22 15:00] LABS: Source Nasal/Nares
[2020-12-22 21:09] LABS: COVID-19 PCR Negative (Negative)
== END 2020-12-22 19:23 | disposition home or self-care (01) ==
LOC: LBN 19:22
PROVIDERS: PCP Family Medicine; Visit Provider Urology
DX: Z20.822 Contact with and (suspected) exposure to COVID-19 (principal)
CPT/HCPCS: 87635

== ENCOUNTER 2020-12-23 09:27 | Outpatient (CLI) | payer BC, SELFPAY ==
[2020-12-23 15:01] LABS: Source Nasal/Nares
[2020-12-23 17:55] LABS: COVID-19 PCR Negative (Negative)
== END 2020-12-23 09:28 | disposition home or self-care (01) ==
PROVIDERS: PCP Family Medicine; Visit Provider Urology
DX: Z20.822 Contact with and (suspected) exposure to COVID-19 (principal); Z01.818 Encounter for other preprocedural examination
CPT/HCPCS: 87635

== ENCOUNTER 2020-12-26 07:55 | Day surgery (SDC) | payer BC, SELFPAY ==
[2020-12-26] VITALS (7 sets, daily range): BP systolic 114–148; BP diastolic 61–92; PULSE 69–79; RESP 11–18; TEMP 36–36.3; O2SAT 96–100; BMI 26.0
[2020-12-26] MEDS: Lactated Ringers 1,000 ML 80 ML IV (08:41)
--- NOTE | 2020-12-26 10:15 | DI.RAD_ITS ---
Exam(s) XR RETROGRADE IN OR EXAM: XR RETROGRADE IN OR CLINICAL HISTORY: LEFT URETERAL STONE. TECHNIQUE: Fluoroscopy was provided for the referring physician for guidance with performing retrogr itzel procedure. COMPARISON: CT CT RENAL COLIC WO from 12/19/[address] RENAL COLIC WO from 12/19/2020 FINDINGS: Please see procedure note for details. Fluoro time 55.0 seconds RADIATION DOSE DELIVERED: Ka,r=8.3 mGy
--- NOTE | 2020-12-26 10:30 | W.ANESPRE ---
General Info Date of Service Date Performed: 12/26/20 Height: 5 ft 11 in Weight: 84.7 kg Body Mass Index (BMI): 26.0 Surgical Procedure: Operation Date: 12/26/20 10:10 Proposed Procedures Side Surgeon p CYSTO,RETROGRADE,LT URETEROSCOPY, HOLMIUM LASER, POSSIBLE STENT Left Chet Pedraza MD Actual Procedures Side Surgeon p CYSTO,RETROGRADE,LT URETEROSCOPY, HOLMIUM LASER, POSSIBLE STENT Left Chet Pedraza MD Meds Allergies and Home Medications Allergies Allergy/AdvReac Type Severity Reaction Status Date / Time No Known Allergies Allergy Unverified 12/26/20 08:22 Home Medication Medication Instructions Recorded ibuprofen 800 mg PO TID PRN #30 tab 12/19/20 ondansetron 4 mg disintegrating 4 mg PO Q4H PRN #12 tab 12/23/20 tablet oxycodone 5 mg capsule 5 mg PO Q6H PRN #15 cap MDD 20 12/23/20 tamsulosin 0.4 mg capsule 0.8 mg PO DAILY #7 cap 12/23/20 acetaminophen [Tylenol Extra 500 mg PO Q6H PRN 12/26/20 Strength] Current Visit Medications: Current Medications Generic Name Dose Route Start Last Admin Trade Name Freq PRN Reason Stop Dose Admin Ringer's Solution 1,000 mls @ 80 mls/hr 12/23/20 06:00 12/26/20 08:41 IV 01/21/21 23:59 80 mls/hr INFUSION MADDISON Administration Cefazolin Sodium/Dextrose 1 gm in 50 mls @ 100 mls/hr 12/26/20 07:00 Ancef Duplex IVPB 12/26/20 16:00 PREOP MADDISON IV Miscellaneous Supplies 1 each 12/23/20 06:00 Iv Access IV 01/21/21 23:59 DIRECTED MADDISON Sodium Chloride 0 ml 12/23/20 06:00 Normal Saline Flush 10 Ml Syr IV 01/21/21 23:59 PRN PRN Sodium Chloride 0 ml 12/23/20 06:00 Normal Saline 10 Ml Vial IJ 01/21/21 23:59 DIRECTED PRN Sterile Water 0 ml 12/23/20 06:00 Water,Injection,Sterile 10 Ml Vial IJ 01/21/21 23:59 DIRECTED PRN PFSH Active Problems Active Problems: Problem Status Onset Code Kidney stones N20.0 Ureteral stone N20.1 Medical History Medical History History of Scott's palsy 2005-resolved. Ureteral stone Surgical History Surgical History History of lithotripsy 2014-in [facility] endoscopy Tobacco Smoking/Tobacco Use Status: Former Tobacco Use Alcohol Alcohol Intake: current Alcohol intake frequency: a few times a week Alcohol type: beer Substance Use Substance use: Occasionally Substance use type: marijuana Vital Signs and Lab Results Vital Signs Most Recent Vital Signs in EMR: Most Recent Vital Signs Temp Pulse Resp BP Pulse Ox 36.3 C L 69 18 148/90 H 100 12/26/20 08:10 12/26/20 08:10 12/26/20 08:10 12/26/20 08:10 12/26/20 08:10 Lab Results Blood Type / Crossmatch: No Data to Display Complete Blood Count: White Blood Count 8.82 10^3/uL (4.4-10.8) 12/20/20 06:14 12/20/20 Red Blood Count 4.38 10^6/uL (4.36-5.78) 12/20/20 06:14 12/20/20 Hemoglobin 13.0 g/dL (13.5-17.5) L 12/20/20 06:14 12/20/20 Hematocrit 38.9 % (40.0-50.0) L 12/20/20 06:14 12/20/20 Platelet Count 160 10^3/uL (130-400) 12/20/20 06:14 12/20/20 Complete Metabolic Panel: Sodium Level 141 mmol/L (136-145) 12/20/20 06:14 12/20/20 Potassium Level 3.9 mmol/L (3.5-5.1) 12/20/20 06:14 12/20/20 Chloride Level 106 mmol/L (98-107) 12/20/20 06:14 12/20/20 Carbon Dioxide Level 28.0 mmol/L (21.0-32.0) 12/20/20 06:14 12/20/20 Blood Urea Nitrogen 14 mg/dL (7-18) 12/20/20 06:14 12/20/20 Creatinine 1.5 mg/dL (0.70-1.30) H 12/20/20 06:14 12/20/20 Estimated GFR/1.73 m2 51.83 (mL/min/1.73m2) 12/20/20 06:14 12/20/20 Calcium Level 8.1 mg/dL (8.5-10.1) L 12/20/20 06:14 12/20/20 Albumin 4.3 g/dL (3.4-5.0) 12/19/20 04:53 12/19/20 Glucose Level 101 mg/dL (74-106) 12/20/20 06:14 12/20/20 Liver Function Panel: Alanine Aminotransferase (ALT/SGPT) 28 U/L (16-63) 12/19/20 04:53 12/19/20 Aspartate Amino Transf (AST/SGOT) 16 U/L (15-37) 12/19/20 04:53 12/19/20 Coagulation Panel: No Data to Display Cardiac Panel: No Data to Display Arterial Blood Gas: No Data to Display Venous Blood Gas: No Data to Display Pancreas Panel: No Data to Display Thyroid Panel: No Data to Display Infectious Disease: Coronavirus (COVID-19)(PCR) Negative (Negative) 12/23/20 11:49 12/23/20 Coronavirus 2019 Source Nasal/Nares 12/23/20 11:49 12/23/20 Blood Cultures: No Data to Display Toxicology Panel: No Data to Display Anesthesia Assessment and Plan Anesthesia History Personal History: No History of Anesthesia Complications Family History: No Family History of Anesthesia Complications Exercise Tolerance Exercise Tolerance: Metabolic Equivalents<4 Pertinent Negatives Pertinent Negatives: No Symptoms of GERD, No Major Cardiovascular Symptoms or Complaints, No Major Pulmonary Symptoms or Complaints and No History of CVA/TIA Cardiac & Pulmonary Exam Cardiac Exam: Normal S1/S2 Heart Sounds Pulmonary Exam: Clear Bilateral Breath Sounds Airway Exam Known Difficult Airway: No Mallampati Class: 2 Mouth Opening: Normal (> 3cm) Thyromental Distance: Greater than 3 cm Facial Hair: Full Infante Neck Range of Motion: Full ROM Neck Circumference: Normal Teeth Condition: Normal Dentition Airway Comments: Left lower Molar cap ASA Classification ASA Score: ASA 2 Emergency Case?: No NPO Status NPO Status: NPO Clears >2 hours, Solids >8 hours Anesthesia Plan Resuscitation Status: Full Code Anesthesia Technique: MAC Anesthesia Airway Planned: Natural Airway Monitors Used: Standard Monitors
--- NOTE | 2020-12-26 10:31 | W.PM.HP.N ---
Date of service: 12/26/20 Time of Service: 10:31 Assessment and Plan Assessment and plan (1) Ureteral stone: Status: Acute Assessment and plan: For cystoscopy with left retrograde pyelogram, ureteroscopy and stone manipulation. we discussed risks including bleeding and infection. we also discussed that we may not be able to access his stone in which case we may need to place a ureteral stent and return to the OR for a staged procedure. History of Present Illness History of Present Illness Chief Complaint: left ureteral stone Narrative: This is a 40-year-old gentleman who has a past history significant for kidney stones. He was treated with ESWL previously. I do not have access to the surgery report, but it sounds as if this treatment was done on the left kidney and he passed stone fragments following the procedure. He has never had a stone analysis or metabolic work-up. Our first encounter with this gentleman occurred in 2019 when he presented to the emergency room with right-sided renal colic. He passed a ureteral stone at that time. He was identified as having nonobstructing left kidney stones. He has had several office visits since then. On one occasion, he was complaining of right sided pain but his stones were present on the left. On each occasion, his 2 stones remained in the left lower pole. He then presented to our ED with left sided renal colic. At that time, his CT showed one of the two renal stones had migrated to the midureter. The second stone remained in the lower pole. He has not been able to pass his stone. His pain has migrated to the lower abdomen and he has seen gross blood with voiding just in the last day. Review of Systems Narrative: No fevers or chills No vision change or dysphasia No diabetes or thyroid No shortness of breath, cough or hemoptysis No chest pain or palpitations Constipation related to opiod anagesics. No hepatitis, ulcers, jaundice, diarrhea No seizures, strokes or peripheral neuropathy No bleeding disorders or anemia No gout [facility] Medical History History of Scott's palsy 2005-resolved. Ureteral stone Surgical History History of lithotripsy 2013-in [facility] of endoscopy Social History (Reviewed 12/19/20 @ 04:52 by SUN Swanson Smoking/Tobacco Use Status: Former Tobacco Use Quit Date: 07/07/18 Smoking risk assessment performed?: Yes Alcohol Intake: current Alcohol Intake frequency: a few times a week Alcohol type: beer Drug use: Occasionally Substance use type: marijuana Current gender identity: other Do you feel safe at home: Yes Do you feel safe in your relationship?: Yes Meds Allergies and Home Medications Allergies Allergy/AdvReac Type Severity Reaction Status Date / Time No Known Allergies Allergy Unverified 12/26/20 08:22 Home Medications Medication Instructions Recorded Confirmed Type ibuprofen 800 mg PO TID PRN #30 tab 12/19/20 12/23/20 Rx ondansetron 4 mg disintegrating 4 mg PO Q4H PRN #12 tab 12/23/20 12/23/20 Rx tablet oxycodone 5 mg capsule 5 mg PO Q6H PRN #15 cap MDD 20 12/23/20 12/23/20 Rx tamsulosin 0.4 mg capsule 0.8 mg PO DAILY #7 cap 12/23/20 12/23/20 Rx acetaminophen [Tylenol Extra 500 mg PO Q6H PRN 12/26/20 12/26/20 History Strength] Exam Const General: cooperative and healthy appearing Neck Neck: supple Resp Effort & Inspection: normal respiratory effort Auscultation: clear to auscultation bilaterally Cardio Rate: regular rate Rhythm: regular rhythm GI Palpation: soft and no masses Neuro General: patient alert, patient awake and patient oriented x3 Results Last Vital Signs Temp 36.3 C L 12/26/20 08:10 Pulse 69 12/26/20 08:10 Resp 18 12/26/20 08:10 BP 148/90 H 12/26/20 08:10 Pulse Ox 100 12/26/20 08:10
[2020-12-26] MEDS: ceFAZolin 1 GM/50 ML BAG IVPB (10:48)
[2020-12-26] MEDS: Lidocaine 2% Jelly 6 ML SYR (11:06)
[2020-12-26] MEDS: Omnipaque 300 MG/ML 50 ML BTL (11:21)
--- NOTE | 2020-12-26 11:31 | W.PM.DSUDISC ---
Discharge Plan Disposition Patient Disposition: HOME Condition: Stable Discharge Details Reason For Visit: (L) URETERAL STONE Attending Provider: Chet Pedraza Primary Care Provider: Ye Michelle Home Meds and New Rx's Prescriptions: New ketorolac 10 mg tablet 10 mg PO TID PRNQty: 12 RF: 0 Discontinued oxycodone 5 mg capsule 5 mg PO Q6H MDD 20 PRN (Reason: pain) Qty: 15 RF: 0 tamsulosin 0.4 mg capsule 0.8 mg PO DAILY Qty: 7 RF: 0 ibuprofen 800 mg tablet 800 mg PO TID PRN (Reason: pain) Qty: 30 RF: 0 No Action ondansetron 4 mg tablet,disintegrating 4 mg PO Q4H PRN (Reason: nausea) Qty: 12 RF: 0 acetaminophen [Tylenol Extra Strength] 500 mg Tablet 500 mg PO Q6H PRNRF: 0 Discharge Instructions Additional Instructions: Followup 2 to 3 days for stent removal in office - please let my office know there is a string on the stent followup appt 6 weeks with renal US no need to strain urine Activity:: Activity as Tolerated Shower/Bathe:: 24 hours Diet:: As Tolerated Discharge Orders Discharge Orders: Discharge Order (Routine); Ordered 12/26/20 Ordered By: Chet Pedraza DS: Diagnosis Discharge Diagnosis (1) Ureteral stone: Status: Acute
--- NOTE | 2020-12-26 11:35 | ROE_ITS ---
Date of service: 12/26/20 Time of Service: 11:35 Operative Note Operative Note DATE OF PROCEDURE: 12/26/20 PRE-OP DIAGNOSIS: left ureteral stone POST-OP DIAGNOSIS: same PROCEDURE: cystoscopy, left retrograde pyelogram, left ureteroscopy with stone extraction, insert left ureteral stent SURGEON: Chet Pedraza ANESTHESIA TYPE: Local By Surgeon and General LMA/ETT Refer to Anesthesia Record ESTIMATED BLOOD LOSS: 5 PATHOLOGY: other (stone for chemical analysis) Patient was transported to: PACU Patient's condition: stable Implants: 4.8 Japanese by 22 to 30 cm left ureteral stent Indications: Is a 40-year-old gentleman with a past history of bilateral kidney stones. We have been monitoring for two known lower pole stones on the left. He presented to the emergency room with left-sided renal colic. On imaging studies, one of the stones had moved into the left mid ureter. He has not been able to pass the stone with conservative management. He presents for stone manipulation. Findings: left distal ureteral stone bloody urine with hydronephrotic drip from proximal left ureter Procedure Description: The patient was given preoperative IV antibiotics and brought to the operating room on 12/26/2020. After successful induction of general anesthesia, he was placed in the dorsal lithotomy position. His genitalia was prepped and draped. 2% Xylocaine jelly was instilled into the urethra to act as a local anesthetic. A 22 Japanese rigid cystoscope was then passed through the urethra into the bladder. The urethra and bladder were inspected with a 30 degree lens. The pendulous, bulbar and membranous urethra is all appeared normal with no strictures. The prostatic urethra appeared normal as well. The bladder neck was entered and the bladder mucosa was inspected. Multiple small blood clots were found within the bladder. No stones were seen in the bladder. The left ureteral orifice was visualized and was cannulated with a 5 Japanese access catheter. Retrograde pyelogram was obtained by injecting Omnipaque thr ough the access catheter under fluoroscopic guidance. We were able to outline a left distal ureteral stone. I then passed a guidewire through the access catheter and maneuvered the wire up the left ureter. We removed the access catheter leaving the wire in place. I then passed a semirigid ureteroscope through the urethra into the bladder. I was able to maneuver the ureteroscope into the left ureteral orifice and advanced the scope until the stone was visualized. The stone was grasped in a Mary stone basket and removed in its entirety. The stone was sent to the laboratory for chemical analysis. Urine above the stone was somewhat cloudy, so I elected to place a ureteral stent. We chose a 4.8 Japanese variable length stent and left the safety string attached. The stent was advanced over the indwelling wire and the stent was positioned with the proximal end curled in the renal pelvis and the distal end curled within the bladder. The safety string was brought through the urethra and anchored to the dorsum of the penis using a Steri-Strip. The positioning of the stent was confirmed both fluoroscopically and cystoscopically. The patient tolerated the procedure well with no co mplications.
[2020-12-26] MEDS: Phenazopyridine 200 MG TAB PO (12:32)
--- NOTE | 2020-12-26 12:48 | W.ANESPOSTOP ---
Postoperative Evaluation Date, Time and Location Date Performed: 12/26/20 Time Performed: 12:49 Patient Location: Day Surgery Unit Vital Signs Most Recent Imported Vital Signs: Most Recent Vital Signs Temp Pulse Resp BP Pulse Ox 36.2 C L 77 14 140/91 H 99 12/26/20 12:00 12/26/20 12:00 12/26/20 12:00 12/26/20 12:00 12/26/20 12:00 Pain Score Most Recent Pain Score: Most Recent Pain Score Pain Level 2 12/26/20 12:00 Assessment Mental Status: Awake (Alert & Oriented to Patient Baseline) Airway and Respiratory Function: Patent airway with normal (patient baseline) respiratory exam Cardiovascular Function: Hemodynamically Stable Hydration Status: Adequately Hydrated Nausea & Vomiting: No Nausea or Vomiting Pain: Pt. Denies Any Pain (Relates tolerable discomfort from stent and urge to urinate) Peripheral Nerve Block: Patient did not receive a nerve block
[2020-12-30 14:17] LABS: Source: Left Ureter
== END 2020-12-26 14:20 | disposition home or self-care (01) ==
PROVIDERS: PCP Family Medicine; Visit Provider Urology
PROC: (CPT 52325; principal; 2020-12-26 10:00)
DX: N20.1 Calculus of ureter (principal)
CPT/HCPCS: 52325; 52332; 74420; 82365; J0690; J1100; J1885; J2405; Q9967

== ENCOUNTER 2021-08-22 01:55 | Outpatient (CLI) | payer OTHER, SELFPAY ==
[2021-08-22 09:44] LABS: ALT 24 U/L (16-63); AST 13 U/L (15-37); Alkaline Phosphatase 69 U/L (46-116); Anion Gap 6.7 mmol/L (3-11); BUN 14 mg/dL (7-18); Bilirubin, Total 0.4 mg/dL (0.2-1.0); CO2 30.3 mmol/L (21.0-32.0); CREATININE 0.9 mg/dL (0.70-1.30); Calcium 8.6 mg/dL (8.5-10.1); Calculated LDL 119 mg/dL (<100); Chloride 106 mmol/L (98-107); Cholesterol 195 mg/dL (<200); Glucose 103 mg/dL (74-106); HDL Cholesterol 42 mg/dL (40-60); Potassium 4.4 mmol/L (3.5-5.1); Sodium 143 mmol/L (136-145); Triglyceride 173 mg/dL (<150)
[2021-08-23 11:29] LABS: HIV-1/2 Ag & Ab Screen Negative (Negative)
[2021-08-23 11:49] LABS: Hepatitis C Ab w Rflx HCV PCR Negative (Negative)
== END 2021-08-22 01:56 | disposition home or self-care (01) ==
PROVIDERS: PCP Family Medicine; Visit Provider Family Medicine
DX: Z13.220 Encounter for screening for lipoid disorders (principal); Z11.3 Encounter for screening for infections with a predominantly sexual mode of transmission; Z11.4 Encounter for screening for human immunodeficiency virus [HIV]; Z11.59 Encounter for screening for other viral diseases
CPT/HCPCS: 36415; 80053; 80061; 86803; 87389

== ENCOUNTER → 2022-01-22 01:49 | Outpatient (CLI) | payer OTHER, SELFPAY ==
--- NOTE | 2022-01-22 06:45 | DI.RAD_ITS ---
Exam(s) XR ABDOMEN FLAT PLATE EXAM: 2D digital imaging was performed. CLINICAL HISTORY: monitoring left stone,renal calculi,z87.442. COMPARISON: No exams were available for comparison TECHNIQUE: Supine views of the abdomen performed. FINDINGS: BOWEL GAS PATTERN: Nondistended. CALCIFICATIONS: 2 adjacent calcifications project in the lower pole of the left kidney. No right bill ed renal calculi or bladder calculi are seen. OSSEOUS STRUCTURES: Normal for age. OTHER FINDINGS: None. IMPRESSION: 1. Nonobstructive bowel gas pattern. 2. Two adjacent calcifications at the lower pole of the left kidney. DATA REPOSITORY: RADIATION DOSE DELIVERED:
== END ==
PROVIDERS: PCP Family Medicine; Visit Provider Nurse Practitioner Gerontology
DX: N20.0 Calculus of kidney (principal); Z87.442 Personal history of urinary calculi
CPT/HCPCS: 74018

== ENCOUNTER 2022-09-13 15:38 | Outpatient (CLI) | payer MEDICAID, SELFPAY ==
--- NOTE | 2022-09-13 15:30 | RT.EKG_ITS ---
APPROVED REPORT Exam: Resting ECG Reason for Exam: baseline ekg for vvyanse use Patient Location: O HR:70 bpm ECG Measurements Heart Rate 70 AXIS DC 171 P 49 QRSd 102 QRS 54 QT 401 T 37 QTc 433 Conclusion Sinus rhythm...normal P axis, V-rate 50- 99 RSR' in V1 or V2, probably normal variant...small R' only Baseline wander in lead(s) V2,V3
== END 2022-09-13 15:39 | disposition home or self-care (01) ==
LOC: DI.KIM 15:38
PROVIDERS: PCP Family Medicine; Visit Provider Family Medicine
DX: F98.8 Other specified behavioral and emotional disorders with onset usually occurring in childhood and adolescence (principal); Z51.81 Encounter for therapeutic drug level monitoring
CPT/HCPCS: 93010

== ENCOUNTER 2022-09-27 13:14 | Emergency (ER) | payer MEDICAID, SELFPAY ==
[2022-09-27 13:16] VITALS: BP 134/88; PULSE 82; RESP 18; TEMP 36.7; O2SAT 98
--- NOTE | 2022-09-27 14:45 | DI.US_ITS ---
Exam(s) US ABDOMEN RENAL EXAM: US ABDOMEN RENAL CLINICAL HISTORY: RUQ and flank pain TECHNIQUE: Ultrasound of complete upper abdomen performed using standard protocol. COMPARISON: CT CT RENAL COLIC WO from 12/19/2020 FINDINGS: There is no ascites evident. LIVER: There are no hepatic lesions evident nor obvious dilatation of intrahepatic ducts. GALLBLADDER/BILIARY: There are no gallstones. No gallbladder wall edema nor pericholecystic fluid. The common hepatic duct isnot dilated, measuring 3-4mm at the level of ivis hepatis. PANCREAS: There is no evidence of pancreatic mass nor dilatation of the pancreatic duct. SPLEEN: Spleen size upper normal. No intrasplenic masses. No perisplenic fluid. KIDNEYS:Right kidney appears unremarkable. There is an echogenic focus in the inferior pole the left kidney measures 11 millimeters and corresponding to calculus seen on CT scan of December 2020. No s olid renal masses. ABDOMINAL AORTA: There is no evidence of abdominal aortic aneurysm. IVC: Normal diameter where visualized. URINARY BLADDER: Prevoid volume 270 cc. Postvoid volume is 0. No obvious mass nor diverticulum in the bladder. No shadowing calculi seen in the urinary bladder. Prostate volume 30 cc, mildly enlarged. IMPRESSION: 1. No evidence of cholelithiasis nor dilatation of the biliary tree. 2. Nonobstructive 11 millimeter calculus in the inferior pole region of the left kidney. 3. No obvious abnormality evident in the urinary bladder. 4. Other findings as above DATA REPOSITORY:
[2022-09-27 15:19] LABS: Abs Immature Grans 0.01 10^3/uL (0.0-0.06); Absolute Basophil Count 0.02 10^3/uL (0.0-0.2); Absolute Eosinophil Count 0.04 10^3/uL (0.0-0.7); Absolute Lymphocyte Count 0.69 10^3/uL (1.2-3.4); Absolute Monocyte Count 0.32 10^3/uL (0.1-0.8); Absolute Neutrophil Count 3.48 10^3/uL (1.2-6.7); Basophils % 0.4; Eosinophils % 0.9; HCT 45.5 % (40.0-50.0); HGB 15.6 g/dL (13.5-17.5); Immature Grans % 0.2; Lymphocytes % 15.1; MCH 29.8 pg (27.0-33.0); MCHC 34.3 % (32.0-36.0); MCV 87 fL (80-95); MPV 9.5 fL (8.0-11.0); Neutrophils % 76.4; Platelet Count 162 10^3/uL (130-400); RBC 5.24 10^6/uL (4.36-5.78); RDW 11.9 % (11.8-14.1); WBC 4.56 10^3/uL (4.4-10.8)
--- NOTE | 2022-09-27 15:24 | W.ED.GENAD ---
Discharge Plan Disposition Patient Disposition: Home Discharge Details Clinical Impression: Acute viral syndrome Primary Care Provider: Ye Michelle ED Provider: Harjinder Mota Home Meds and New Rx's Prescriptions: Continued Vyvanse 20 mg capsule 20 mg PO DAILY MDD 20 mg Qty: 14 0RF ibuprofen 200 mg tablet 200 mg PO Q6H PRN acetaminophen [Tylenol Extra Strength] 500 mg Tablet 500 mg PO Q6H PRN Discharge Instructions Instructions: Viral Syndrome (ED) Additional Instructions: At this time your labs are nondiagnostic with no emergent findings. If you have any new or significant worsening symptoms feel free to return the emergency department for reassessment. We are still pending a tick panel and we will contact you with any positive results. Please stay well-hydrated and follow-up with your primary care provider if not improving over the next week. Referrals: Ye Michelle DO [Primary Care Provider] - Discharge Data Discharge Date/Time-TO BE ENTERED AT DEPARTURE: 09/27/22 17:42 Medical Decision Making <ESTRELLITA Ramsay - Last Filed: 09/28/22 11:18> This 42-year-old male presents with report of lower back pain fatigue, and myalgias since Saturday. States he ate a fatty diet prior to onset of symptoms. Exam is benign, suspect viral etiology, however will order ultrasound of right upper quadrant and kidneys for further evaluation Pending urinalysis Care be transitioned pending repeat assessment and diagnostic imaging interpretation <Harjinder Mota NP - Last Filed: 09/27/22 23:05> This 42-year-old male presents with report of lower back pain fatigue, and myalgias since Saturday. States he ate a fatty diet prior to onset of symptoms. Exam is benign, suspect viral etiology, however will order ultrasound of right upper quadrant and kidneys for further evaluation Pending urinalysis Care be transitioned pending repeat assessment and diagnostic imaging interpretation 1600-patient signed out to me pending review of labs and ultrasound imaging. Review of labs is overall unremarkable, urinalysis does show slight amount of ketones and trace blood otherwise nondiagnostic. Patient still pending tick panel. Ultrasound imaging reviewed and shows 11MM nonobstructive stone on the left otherwise no acute findings noted. Reassessed patient and patient does state some improvement of symptoms. With further discussion it does seem that patient's symptoms are more consistent with viral type illness. Discussed with patient further imaging given his concern of his kidneys and his history which at this time he is deferring further imaging which I feel is reasonable. Also did discuss antibiotics for tickborne illness when after discussion of risk versus benefit patient does state that he has been improving and overall symptoms compared to the first couple days of illness. So again patient is deferring any antibiotics at this time which again I feel is okay. Patient encouraged to stay well-hydrated, continue use [id number], and return for any new or significant worsening of symptoms. After discussion of diagnosis and plan of care patient has no further needs, questions, or concerns and states clear understanding to return to the emergency department for any worsening symptoms. This documentation was generated using [employer] dictation system, please disregard any oddities of phrase or misspellings. Imaging Data Radiologic Study: Imaging: Ultrasound Radiologist's impression: Exam(s) US ABDOMEN RENAL EXAM: US ABDOMEN RENAL CLINICAL HISTORY: RUQ and flank pain TECHNIQUE: Ultrasound of complete upper abdomen performed using standard protocol. COMPARISON: CT CT RENAL COLIC WO from 12/19/2020 FINDINGS: There is no ascites evident. LIVER: There are no hepatic lesions evident nor obvious dilatation of intrahepatic ducts. GALLBLADDER/BILIARY: There are no gallstones. No gallbladder wall edema nor pericholecystic fluid. The common hepatic duct isnot dilated, measuring 3-4mm at the level of ivis hepatis. PANCREAS: There is no evidence of pancreatic mass nor dilatation of the pancreatic duct. SPLEEN: Spleen size upper normal. No intrasplenic masses. No perisplenic fluid. KIDNEYS:Right kidney appears unremarkable. There is an echogenic focus in the inferior pole the left kidney measures 11 millimeters and corresponding to calculus seen on CT scan of December 2020. No solid renal masses. ABDOMINAL AORTA: There is no evidence of abdominal aortic aneurysm. IVC: Normal diameter where visualized. URINARY BLADDER: Prevoid volume 270 cc. Postvoid volume is 0. No obvious mass nor diverticulum in the bladder. No shadowing calculi seen in the urinary bladder. Prostate volume 30 cc, mildly enlarged. IMPRESSION: 1. No evidence of cholelithiasis nor dilatation of the biliary tree. 2. Nonobstructive 11 millimeter calculus in the inferior pole region of the left kidney. 3. No obvious abnormality evident in the urinary bladder. 4. Other findings as above Lab Data Lab results reviewed: Yes I reviewed the patient's lab results. HPI <ESTRELLITA Ramsay - Last Filed: 09/28/22 11:18> General Date/Time Provider Initiated Documentation: 09/27/22 14:19. HPI Narrative: This 42-year-old male presents with report of lower back pain with myalgias for and fatigue. History of kidney stones, feels differently per patient. States he ate a fatty diet on Saturday and his symptoms started approximately 24 hours later. Denies any chest pain or shortness of breath. Denies any calf pain or swelling. Denies any exacerbating or alleviating factors. Denies any urinary complaints. Denies any tick bites. Related Data Home Medications Medication Instructions Recorded Confirmed acetaminophen 500 mg tablet 500 mg PO Q6H PRN 12/26/20 09/13/22 (Tylenol Extra Strength) ibuprofen 200 mg tablet 200 mg PO Q6H PRN 08/15/21 09/13/22 lisdexamfetamine 20 mg capsule 20 mg PO DAILY #14 caps 09/13/22 09/13/22 (Vyvanse) Previous Rx's Medication Instructions Recorded lisdexamfetamine 20 mg capsule 20 mg PO DAILY #14 caps 09/13/22 (Vyvanse) Allergies Allergy/AdvReac Type Severity Reaction Status Date / Time No Known Allergies Allergy Verified 09/13/22 15:33 General Stated Complaint: GenMedical KELLEN: 3 PFSH <ESTRELLITA Ramsay - Last Filed: 09/28/22 11:18> All Active Problems (Updated 09/27/22 @ 17:27 by Harjinder Mota NP) Acute viral syndrome (Acute) Attention deficit disorder (ADD) in adult (Acute) Attention and concentration deficit (Acute) Seborrhea (Acute) Ex-smoker for more than 1 year (Acute) Benign positional vertigo (Acute) Kidney stones (Chronic) Ureteral stone (Acute) Medical History History of Scott's palsy 2005-resolved. Surgical History History of lithotripsy 2013-in [facility] of endoscopy Family History Mother Lymphoma Depression Anxiety Father Depression Diabetes Anxiety Social History (Updated 08/20/22 @ 11:29 by Jaida Angel) Smoking/Tobacco Use Status: Former Tobacco Use Quit Date: 07/07/18 Pack-years: 15 Smoking risk assessment performed?: Yes Alcohol Intake: current Alcohol Intake frequency: a few times a week Alcohol type: beer Drug use: Occasionally Substance use type: marijuana Adopted: No Caregiver/Support person: No Foster care: No Household members: family Housing: apartment Number of Children: 1 number of grandchildren: 0 Communication Needs: None Education Level: college Details: BS Do you need help understanding health information?: Rarely Pets and animals: No Sexually active: Yes Do you think of yourself as: straight/heterosexual Current gender identity: male What is your relationship status?: How often do you talk on the phone with friends or family?: once per week How often do you get together with friends or relatives?: once per week Do you belong to any clubs or organized social groups?: no Panel score (0-1 are the most socially isolated patients): 1 What type of physical activity do you participate in: weight lifting, other Details: Tennis and yoga Duration: 15-30 minutes/day Frequency: daily Fide/Mosque: None Special fide needs: No Seatbelt use: always Helmet use: Yes 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 Do you feel safe at home: Yes Do you feel safe in your relationship?: Yes Victim of physical abuse: No Victim of emotional abuse: No Victim of sexual abuse: No Course <ESTRELLITA Ramsay - Last Filed: 09/28/22 11:18> Vital Signs Vital signs: Vital Signs Temperature 36.7 C 09/27/22 13:16 Pulse 82 09/27/22 13:16 Respiratory Rate 18 09/27/22 13:16 Blood Pressure 134/88 09/27/22 13:16 Pulse Oximetry 98 09/27/22 13:16 Temperature 36.7 C 09/27/22 13:16 Pulse 82 09/27/22 13:16 Respiratory Rate 18 09/27/22 13:16 Respiratory Effort Normal 09/27/22 13:20 Blood Pressure 134/88 09/27/22 13:16 Pulse Oximetry 98 09/27/22 13:16 Oxygen Delivery Method Room Air 09/27/22 13:16 Oxygen Flow Rate 0 09/27/22 13:16 Pain Level 3 09/27/22 13:16 Lab/Test Results Lab/Test Results: Laboratory Tests Range/Units 09/27/22 09/27/22 15:11 15:21 WBC (4.4-10.8) 10^3/uL 4.56 RBC (4.36-5.78) 10^6/uL 5.24 Hgb (13.5-17.5) g/dL 15.6 Hct (40.0-50.0) % 45.5 MCV (80-95) fL 87 MCH (27.0-33.0) pg 29.8 MCHC (32.0-36.0) % 34.3 RDW (11.8-14.1) % 11.9 Plt Count (130-400) 10^3/uL 162 MPV (8.0-11.0) fL 9.5 Immature Gran % 0.2 Neutrophils % 76.4 Lymphocytes % 15.1 Monocytes % 7.0 Eosinophils % 0.9 Basophils % 0.4 Nucleated RBC % (0.0-0.3) % 0.0 Absolute Neutrophils (1.2-6.7) 10^3/uL 3.48 Absolute Lymphocytes (1.2-3.4) 10^3/uL 0.69 L Absolute Monocytes (0.1-0.8) 10^3/uL 0.32 Absolute Eosinophils (0.0-0.7) 10^3/uL 0.04 Absolute Basophils (0.0-0.2) 10^3/uL 0.02 COVID-19 Source Cancelled SARS-CoV-2 (PCR) Cancelled Sign Out <ESTRELLITA Ramsay - Last Filed: 09/28/22 11:18> Sign Out Data: Sign Out Comment: pending US results Last updated by Rubina Mitchell PA at 09/27/22 16:02 PAWSS <ESTRELLITA Ramsay - Last Filed: 09/28/22 11:18> Have you Been Recently Intoxicated or Drunk Within the Last 30 days?: No Have you Ever Experienced Previous Episodes of Alcohol Withdrawal?: No Have you ever Experienced Withdrawal Seizures?: No Have you ever Experienced Delirium Tremens(DT)s?: No Have you ever undergone Alcohol Rehabilitation Treatment (i.e, inpt ot outpatient treatment programs)?: No Have you ever Experienced Blackouts?: No Have you ever Combined Alcohol with other Downers within the last 90 days?: No Have you ever Combined Alcohol with any other Substance of Abuse during the last 90 days?: No Positive Blood Alcohol level on Presentation? [PCS.BAL]: No Evidence of Increased Autonomic Activity (i.e. HR>120, tremor, sweating, agitation, nausea)?: No Result: 0 <Harjinder Mota NP - Last Filed: 09/27/22 23:05> Result: 0
[2022-09-27 15:36] LABS: ALT 26 U/L (16-63); AST 19 U/L (15-37); Albumin 4.1 g/dL (3.4-5.0); Alkaline Phosphatase 54 U/L (46-116); Anion Gap 8.3 mmol/L (3-11); BUN 10 mg/dL (7-18); CO2 29.7 mmol/L (21.0-32.0); Calcium 8.7 mg/dL (8.5-10.1); Chloride 104 mmol/L (98-107); Estimated GFR 96.37 (mL/min/1.73m2); Glucose 89 mg/dL (74-106); Lipase 21 U/L (16-77); Potassium 4.1 mmol/L (3.5-5.1); Sodium 142 mmol/L (136-145); Total Protein 7.6 g/dL (6.4-8.2)
[2022-09-27 16:07] LABS: Bilirubin Negative (Negative); Blood Small (Negative); Clarity Clear (Clear); Glucose Negative (Negative); Ketones 80 mg/dL (Negative); Leukocyte Esterase Negative (Negative); Nitrite Negative (Negative); Urobilinogen 0.2 mg/dL (Up to 0.2)
[2022-09-27 16:17] LABS: Bacteria Rare HPF (Negative); C & S Indicated? No; Casts 0-2 Hyaline LPF (Negative); Crystals Negative HPF (Negative); Epithelial Cells Rare HPF (Negative); Mucus Trace (Negative); RBC 0-2 HPF (0-2); WBC 0-2 HPF (0-5)
[2022-09-27 17:42] VITALS: BP 123/73; PULSE 74; RESP 18; O2SAT 98
[2022-09-28 12:31] LABS: Lyme Ab w Rflx to Lyme Confirm Negative (Negative)
[2022-09-30 20:06] LABS: Anaplasma phagocytophilum Negative (Negative); B. miyamotoi PCR Negative (Negative); Babesia divergens/MO-1 Negative (Negative); Babesia duncani Negative (Negative); Babesia microti Negative (Negative); Ehrlichia chaffeensis Negative (Negative); Ehrlichia ewingii/canis Negative (Negative); Ehrlichia muris eauclairensis Negative (Negative)
== END 2022-09-27 17:42 | disposition home or self-care (01) ==
PROVIDERS: Physician Assistant; Emergency Provider Nurse Practitioner Family; PCP Family Medicine
DX: B34.9 Viral infection, unspecified (principal); R53.83 Other fatigue; M54.59 Other low back pain; M79.10 Myalgia, unspecified site
CPT/HCPCS: 76770; 80053; 83690; 87426; 87635; 87798; 99284; 76700; 81003; 81015; 85025; 86618; 99283

== ENCOUNTER → 2023-01-28 04:11 | Outpatient (CLI) | payer MEDICAID, SELFPAY ==
--- NOTE | 2023-01-28 07:15 | DI.RAD_ITS ---
Exam(s) XR ABDOMEN FLAT PLATE EXAM: 2D digital imaging was performed. CLINICAL HISTORY: monitoring renal calculi left,Z87.442. COMPARISON: CR XR ABDOMEN FLAT PLATE from 01/22/2022 US US ABDOMEN RENAL from 09/27/2022 TECHNIQUE: Supine views of the abdomen was performed. Two images were obtained. FINDINGS: LUNG BASES: Clear. BOWEL GAS PATTERN: Nondistended. FREE AIR: None. CALCIFICATIONS: There again seen 2 calcifications adjacent to each other projected over the lower [place] of the left kidney. These appears stable. No other urinary tract calculi are identified. There i s a phlebolith again seen in the right pelvis. OSSEOUS STRUCTURES: Normal for age. OTHER FINDINGS: None. IMPRESSION: Left nephrolithiasis. DATA REPOSITORY: RADIATION DOSE DELIVERED:
== END ==
PROVIDERS: PCP Family Medicine; Visit Provider Nurse Practitioner Gerontology
DX: Z87.442 Personal history of urinary calculi (principal); N20.0 Calculus of kidney
CPT/HCPCS: 74018

== ENCOUNTER 2024-01-30 01:15 | Outpatient (CLI) | payer MEDICAID, SELFPAY ==
--- NOTE | 2024-01-30 12:27 | DI.RAD_ITS ---
Exam(s) XR ABDOMEN FLAT PLATE EXAM: XR ABDOMEN FLAT PLATE CLINICAL HISTORY: monitoring left renal calculi,Z87.442. TECHNIQUE: 2D digital imaging was performed. COMPARISON: CT CT RENAL COLIC WO from 12/19/2020 CR XR ABDOMEN FLAT PLATE from 01/28/2023 FINDINGS: AP supine view of the abdomen-pelvis The 2 previously described adjacent calculi in the lower pole region of the left kidney appear unchan ged in size and position. There are no additional radiopaque calculi seen over the kidneys, along th e course of the ureters, nor over the region of the urinary bladder. A single phlebolith in the righ t-side of the pelvis is unchanged.. Densities which are probably artifact are seen on the left side at L3 and L4 levels. There are no radiopaque calculi seen in the pelvis. The bowel gas pattern is nonspecific in the supine position. Regional bones appear un remarkable. S I joints unremarkable. IMPRESSION: Radiographically unchanged appearance and location of the 2 calculi in the lower pole region of the l eft kidney. The larger of these 2 adjacent calculi measures 7 by 5 mm. DATA REPOSITORY: RADIATION DOSE DELIVERED:
== END 2024-01-30 01:35 ==
LOC: DI 01:15
PROVIDERS: PCP Family Medicine; Visit Provider Nurse Practitioner Gerontology
DX: Z87.442 Personal history of urinary calculi (principal); N20.0 Calculus of kidney
CPT/HCPCS: 74018

== ENCOUNTER 2024-11-27 08:59 | Outpatient (CLI) | payer MEDICAID, SELFPAY ==
--- NOTE | 2024-11-27 08:45 | RT.EKG_ITS ---
APPROVED REPORT Exam: Resting ECG Reason for Exam: Medication management Patient Location: O HR:62 bpm ECG Measurements Heart Rate 62 AXIS MD 185 P 36 QRSd 102 QRS 34 QT 414 T 34 QTc 421 Conclusion Sinus rhythm...normal P axis, V-rate 50- 99 Normal Electrocardiogram
== END 2024-11-27 09:00 | disposition home or self-care (01) ==
LOC: DI.KIM 09:00
PROVIDERS: PCP Family Medicine; Visit Provider Family Medicine
DX: Z79.899 Other long term (current) drug therapy (principal)
CPT/HCPCS: 93010

== ENCOUNTER 2025-02-04 03:35 | Outpatient (CLI) | payer MEDICAID, SELFPAY ==
--- NOTE | 2025-02-04 14:49 | DI.RAD_ITS ---
Exam(s) XR ABDOMEN FLAT PLATE EXAM: 2D digital imaging was performed. CLINICAL HISTORY: monitoring calculi Z87.442 PERS HX URINARY CALCULI. COMPARISON: CR XR ABDOMEN FLAT PLATE from 01/30/2024 TECHNIQUE: Supine views of the abdomen performed. FINDINGS: BOWEL GAS PATTERN: Nondistended. CALCIFICATIONS: 2 2 stones again projects at the lower pole of the left kidney, 1 measuring 7 millimeters and the other measuring 5 millimeters. No new calculi are identified. OSSEOUS STRUCTURES: Unremarkable for age. VISUALIZED LUNG BASES: Clear. SOFT TISSUES: Unremarkable. IMPRESSION: 1. Nonobstructive bowel gas pattern. 2. Two stable calcifications at the lower pole of the left kidney. DATA REPOSITORY: RADIATION DOSE DELIVERED:
== END 2025-02-04 03:55 ==
LOC: DI 03:35
PROVIDERS: PCP Family Medicine; Visit Provider Nurse Practitioner Gerontology
DX: Z87.442 Personal history of urinary calculi (principal); N20.0 Calculus of kidney
CPT/HCPCS: 74018